=== PATIENT | male | born 1990 | race Hispanic/Latino ===

== ENCOUNTER 2025-08-07 21:13 | Emergency (ER) | payer SELFPAY ==
[2025-08-07] MEDS ORDERED: HYDROcodone/Acetaminophen 5/325 mg Tablet ONE (21:34)
[2025-08-07 21:42] LABS: #Basophils Less than 0.03 10x3/uL (0.0-0.2); #Eosinophils 0.10 10x3/uL (0.0-0.7); #Monocytes 0.43 10x3/uL (0.11-0.59); #Neutrophils 3.27 10x3/uL (1.40-6.50); %Basophils 0.3 % (0.0-1.0); %Eosinophils 1.6 % (0.0-10.0); %Lymphocytes 40.5 % (21.0-51.0); %Monocytes 6.7 % (0.0-10.0); %Neutrophils 50.6 % (42.0-75.0); Hematocrit 42.4 % (42.0-52.0); Hemoglobin 14.1 g/dL (14.0-18.0); Mean Corpuscular Hemoglobin 28.4 pg (27.0-31.0); Mean Corpuscular Volume 85.5 fL (78.0-98.0); Platelet Count 268 10x3/uL (130-400); Red Blood Cell (RBC) Count 4.96 mill/uL (4.70-6.10); White Blood Cell (WBC) Count 6.45 10x3/uL (4.8-10.8)
[2025-08-07] MEDS ORDERED: Bacitracin 1 PK ONE (21:55)
[2025-08-07 22:05] LABS: ALT (SGPT) 15 U/L (Less than 45); AST (SGOT) 21 U/L (11-34); Albumin 4.3 g/dL (3.1-4.5); Alkaline Phosphatase 78 U/L (40-110); Anion Gap 14 mmol/L (10-20); BUN (Urea Nitrogen) 6 mg/dL (8.9-20.6); Bilirubin, Total 0.5 mg/dL (0.3-1.2); CK (CPK) 196 U/L (30-200); Calc. Creatinine Clearance 0 mL/min (70-130); Calcium 8.5 mg/dL (7.8-10.44); Carbon Dioxide 24 mmol/L (22-29); Chloride 110 mmol/L (98-107); Globulin 2.7 g/dL (2.4-3.5); Glucose 104 mg/dL (70-105); Potassium 3.6 mmol/L (3.5-5.1); Sodium 144 mmol/L (136-145)
== END 2025-08-07 22:46 | disposition home or self-care (01) ==
LOC: ERS 21:13
DX: T21.01XA Burn of unspecified degree of chest wall, initial encounter (principal); T22.00XA Burn of unspecified degree of shoulder and upper limb, except wrist and hand, unspecified site, initial encounter; T31.11 Burns involving 10-19% of body surface with 10-19% third degree burns; T79.9XXA Unspecified early complication of trauma, initial encounter; X19.XXXA Contact with other heat and hot substances, initial encounter; Y93.89 Activity, other specified
CPT/HCPCS: 16000; 80053; 82550; 85025; 96374; J3010